=== PATIENT | female | born 1985 | race Caucasian/White ===

== ENCOUNTER 2017-04-29 08:00 | Emergency (ER) | payer MEDICAID ==
--- NOTE | 2017-04-29 08:39 | ED Physician Chart ---
Chief Complaint/HPI - Patient Information Date Seen:: 04/29/17 Time Seen:: 08:33 Chief Complaint:: abd p History of Present Illness:: pt sasy she was in [place] yest and had a ED workup after onset abd pain and cp...has no records w her. says no meds rxd except was given pepcid at time. pain worse today. pt recalls had pain and swelling at l leg last week but its better/gone now..she recalls her chest began soreness just after leg improved and still is sore. no sob. no cough. no hx pe/dvt. pt has had pain at rt upper abd and rad into rt flank. pos nausea. she has a hx of gerd and is on omeprazole otc and denies missed doses. no pmd and pt denies any rx x 2 > mo no constipation nor diarrhea. lmp regular. no vag dc. Allergies:: Allergies Allergy/AdvReac Type Severity Reaction Status Date / Time ibuprofen [From Motrin] Allergy Verified 04/29/17 08:08 metoclopramide [From Reglan] AdvReac Verified 04/29/17 08:08 Vitals:: Vital Signs - 8 hr 04/29/17 08:08 Temp 98.2 F HR 65 RR 16 BP 113/75 O2 Sat % 100 Historian:: Patient Review of Systems - Review of Systems General/Constitutional: No fever, No chills, No weight loss, No weakness, No diaphoresis, No edema, No loss of appetite Skin: No skin lesions, No rash, No bruising Head: No headache, No light-headedness Eyes: No loss of vision, No pain, No diplopia ENT: No earache, No nasal drainage, No sore throat, No tinnitus Neck: No neck pain, No swelling, No thyromegaly, No stiffness, No mass noted Cardio Vascular: Chest pain, No palpitations, No PND, No orthopnea, No edema Pulmonary: No SOB, No cough, No sputum, No wheezing GI: No nausea, No vomiting, No diarrhea, No pain, No melena, No hematochezia, No constipation, No hematemesis G/U: No dysuria, No frequency, No hematuria Musculoskeletal: No bone or joint pain, No back pain, No muscle pain Endocrine: No polyuria, No polydipsia Psychiatric: No prior psych history, No depression, No anxiety, No suicidal ideation Hematopoietic: No bruising, No lymphadenopathy Allergic/Immuno: No urticaria, No angioedema Neurological: No syncope, No focal symptoms, No weakness, No paresthesia, No headache, No seizure, No dizziness, No confusion, No vertigo Past Medical History - Past Medical History Past Medical History: PUD/GERD Surgical History: Appendectomy, Cholecystectomy Medication: Reviewed Family Medical History - Family Member Mother Living Status: Still Living Other Medical History: thyroid CA, heart prob. Physical Exam - Physical Examination General/Constitutional: Awake, Well-developed, well-nourished, Alert, No distress, GCS 15, Non-toxic appearing, Ambulatory Other Gen/Cons comments:: nontoxic. no colera type mvt. pt appears in nad. wn/wh.alert Head: Atraumatic Eyes: Lids, conjuctiva normal, PERRL, EOMI Skin: Nl inspection, No rash, No skin lesions, No ecchymosis, Well hydrated, No lymphadenopathy ENMT: External ears, nose nl, Nasal exam nl, Lips, teeth, gums nl Neck: Nontender, Full ROM w/o pain, No JVD, No nuchal rigidity, No bruit, No mass, No stridor Respiratory: Nl effort/Exclusion, Clear to Auscultation, No Wheeze/Rhonchi/Rales Other Respiratory comments:: ant chest soreness. no deformity. lungs clear Cardio Vascular: RRR, No murmur, gallop, rubs, NL S1 S2 GI: No organomegaly, No hernia, Normal BS's, Nondistended, No mass/bruits, No McBurney tenderness Other GI comments:: tndr ruq (vague), pos nabs. no masses. pt appears ok comfort. : No CVA tenderness Extremities: No tenderness or effusion, Full ROM, normal strength in all extremities, No edema, Normal digits & nails Neuro/Psych: Alert/oriented, DTR's symmetric, Normal sensory exam, Normal motor strength, Judgement/insight normal, Mood normal, Normal gait, No focal deficits Misc: normal gait, Normal back, No paraspinal tenderness Labs/Radiology/EKG Results - Lab Results Results: Laboratory Tests 04/29/17 04/29/17 04/29/17 08:15 08:15 08:15 WBC RBC Hgb Hct MCV MCH MCHC Differential RDW Plt Count MPV Neutrophils % Lymphocytes % Monocytes % Eosinophils % Basophils % D-Dimer Sodium Potassium Chloride Carbon Dioxide Anion Gap BUN Creatinine Est GFR ( Amer) Est GFR (Non-Af Amer) BUN/Creatinine Ratio Glucose Calcium Total Bilirubin AST ALT Alkaline Phosphatase Troponin I Total Protein Albumin Globulin Albumin/Globulin Ratio Urine Source CLEAN C Urine Color YELLOW Urine Clarity SL. CLOUDY Urine pH 5.5 Ur Specific [place] 1.025 Urine Protein NEGATIVE Urine Glucose (UA) NEGATIVE Urine Ketones NEGATIVE Urine Blood NEGATIVE Urine Nitrate NEGATIVE Urine Bilirubin NEGATIVE Urine Urobilinogen 0.2 Ur Leukocyte Esterase SMALL H Urine RBC 0-2 Urine WBC 6-10 H Ur Epithelial Cells FEW Urine Bacteria FEW Urine Test NEGATIVE POC Ur Test Urine Opiates Screen POSITIVE H Urine Methadone Screen NEGATIVE Ur Barbiturates Screen NEGATIVE Ur Tricyclics Screen POSITIVE H Ur Phencyclidine Scrn NEGATIVE Amphetamines Screen NEGATIVE U Methamphetamines Scrn NEGATIVE U Benzodiazepines Scrn POSITIVE H U Cocaine Metab Screen NEGATIVE U Cannabinoids Screen NEGATIVE 04/29/17 04/29/17 04/29/17 08:50 08:50 09:17 WBC RBC Hgb Hct MCV MCH MCHC Differential RDW Plt Count MPV Neutrophils % Lymphocytes % Monocytes % Eosinophils % Basophils % D-Dimer 154 Sodium 139 Potassium 3.4 L Chloride 107 Carbon Dioxide 24.9 Anion Gap 10.5 BUN 10 Creatinine 0.7 Est GFR ( Amer) > 60.0 Est GFR (Non-Af Amer) > 60.0 BUN/Creatinine Ratio 14.3 Glucose 98 Calcium 9.0 Total Bilirubin 0.3 AST 17 ALT 13 Alkaline Phosphatase 76 Troponin I 0.01 Total Protein 6.8 Albumin 3.8 Globulin 3.0 Albumin/Globulin Ratio 1.3 Urine Source Urine Color Urine Clarity Urine pH Ur Specific [place] Urine Protein Urine Glucose (UA) Urine Ketones Urine Blood Urine Nitrate Urine Bilirubin Urine Urobilinogen Ur Leukocyte Esterase Urine RBC Urine WBC Ur Epithelial Cells Urine Bacteria Urine Test POC Ur Test Negative Urine Opiates Screen Urine Methadone Screen Ur Barbiturates Screen Ur Tricyclics Screen Ur Phencyclidine Scrn Amphetamines Screen U Methamphetamines Scrn U Benzodiazepines Scrn U Cocaine Metab Screen U Cannabinoids Screen 04/29/17 10:09 WBC 7.8 RBC 4.17 Hgb 10.8 L Hct 33.2 L MCV 79.7 L MCH 26.0 L MCHC Differential 32.6 RDW 17.8 Plt Count 315 MPV 7.7 Neutrophils % 77.6 Lymphocytes % 16.7 L Monocytes % 4.5 Eosinophils % 0.5 Basophils % 0.7 D-Dimer Sodium Potassium Chloride Carbon Dioxide Anion Gap BUN Creatinine Est GFR ( Amer) Est GFR (Non-Af Amer) BUN/Creatinine Ratio Glucose Calcium Total Bilirubin AST ALT Alkaline Phosphatase Troponin I Total Protein Albumin Globulin Albumin/Globulin Ratio Urine Source Urine Color Urine Clarity Urine pH Ur Specific [place] Urine Protein Urine Glucose (UA) Urine Ketones Urine Blood Urine Nitrate Urine Bilirubin Urine Urobilinogen Ur Leukocyte Esterase Urine RBC Urine WBC Ur Epithelial Cells Urine Bacteria Urine Test POC Ur Test Urine Opiates Screen Urine Methadone Screen Ur Barbiturates Screen Ur Tricyclics Screen Ur Phencyclidine Scrn Amphetamines Screen U Methamphetamines Scrn U Benzodiazepines Scrn U Cocaine Metab Screen U Cannabinoids Screen - Radiology Results Results: us abd- no ks. nrml GB. no pathology. ED Septic Shock - . Is Septic Shock (SBP<90, OR Lactate>4 mmol\L) present?: No - <6hrs of presentation: Vital Signs: Vital Signs - 8 hr 04/29/17 08:08 Temp 98.2 F HR 65 RR 16 BP 113/75 O2 Sat % 100 Reassessment (Disposition) - Reassessment Reassessment:: explained to pt plan for [facility]. would not advise ct scan abd/p if it was just done ysterday since rad exposure risk signifigant and pos findings unikely given closeness of studies. (ie risk/benefit ratio poor). pt agrees. 10am- dw pt that staff has concerns. laborer vine[employer] recalls pt (and her scarred antecubital veins) from [facility] ED x last 3 days 3 visits there...pt was reportedly there all 3 days under the name of Ramila carranza same exact as today 89. Interestingly pt reports her dropped her off today and had to leave w her 3 kids...and she has a very nice purse w her but had NO identification for registrar today. ...other staff member independently says she remember s pt from prior visit in this ed under another name. additionally some elements of pt's hx seem unlikely to be given verbatim as though culled from medical text. concerns were dw pt that staff is concerned as am I and we have worry she might have a substance issue or other adgenda. Pt denies. expressed my concern and think she should have a pmd if freq ED visits are not elucidative. pt upset she is not to receive narcotic unless we find a clear indication. we have given zofran and a gi cocktail. Reassessment Condition:: Improved - Diagnosis Diagnosis:: 1 chest and abdominal pain of uncertain etiology (likely gerd related) 2 uti - Aftercare/Follow up Instructions Medication Prescribed:: pt to take her PPI as rxd and eat a good diet. no etoh. no spicy foods. add carafate prn (rx) and marcobid for uti. return if worse pain, fever, dehydration. may use regular meds for pain and/or see pain mgt dr. try carafate for gi discomfort pain ...may use maalox, tums, pepto bismol also... take macrobid for uti. plenty fluids. return if worse. pt apparently eloped from ED after we talked earlier...I was not alerted she had left...she did not wait or ask for final review of her results before eloping.. - Patient Disposition Discharge/Transfer:: Home Condition at Disposition:: Improved
[2017-04-29] MEDS ORDERED: Donnatal Liq 5 ML UDC PO ONE (08:41)
[2017-04-29] MEDS ORDERED: Maalox 30 mL Cup PO ONE (08:41)
[2017-04-29] MEDS ORDERED: Donnatal Liq 5 ML UDC ONE ×2 (08:45→08:54)
[2017-04-29] MEDS ORDERED: Maalox 30 mL Cup ONE (08:46)
[2017-04-29 09:16] LABS: ALB/GLOB RATIO 1.3 (1.0-1.8); ALKALINE PHOSPHATASE 76 U/L (34-104); ANION GAP 10.5 (7.0-16.0); BILIRUBIN,TOTAL 0.3 mg/dL (0.3-1.0); BUN - UREA NITROGEN 10 mg/dL (7-25); BUN/CREATININE RATIO 14.3; CARBON DIOXIDE 24.9 mEq/L (21.0-31.0); CHLORIDE 107 mEq/L (98-107); CREATININE - SERUM 0.7 mg/dL (0.6-1.2); GLUCOSE 98 mg/dL (70-105); POTASSIUM SERUM 3.4 mEq/L (3.5-5.1); SGOT 17 U/L (13-39); SGPT/ALT 13 U/L (7-52); SODIUM SERUM 139 mEq/L (136-145)
[2017-04-29 10:03] LABS: URINE BILIRUBIN NEGATIVE (NEGATIVE); URINE BLOOD NEGATIVE (NEGATIVE); URINE COLOR YELLOW; URINE GLUCOSE (UA) NEGATIVE (NEGATIVE); URINE KETONE NEGATIVE (NEGATIVE); URINE PH 5.5; URINE PROTEIN NEGATIVE (NEGATIVE); URINE UROBILINOGEN 0.2 E.U./dL (0.2 - 1.0)
[2017-04-29 10:09] LABS: URINE BACTERIA FEW /hpf (NONE SEEN); URINE EPITHELIAL CELLS FEW /lpf (FEW); URINE RBC 0-2 /hpf (0-5)
[2017-04-29 10:15] LABS: % BASOPHILS 0.7 % (0.0-2.0); % EOSINOPHILS 0.5 % (0.0-5.0); % LYMPHOCYTES 16.7 % (20.0-50.0); % MONOCYTES 4.5 % (2.0-10.0); % NEUTROPHILS 77.6 % (40.0-80.0); HEMATOCRIT 33.2 % (35.0-45.0); HEMOGLOBIN 10.8 gm/dL (11.7-15.5); MEAN CELL VOLUME 79.7 fl (81-100); MEAN CORPUSCULAR HGB CONC 32.6 pg (28.0-36.0); MEAN PLATELET VOLUME 7.7 fl; PLATELET COUNT 315 Th/cmm (150-400); RED BLOOD COUNT 4.17 Mil/cmm (3.80-5.10); RED CELL DISTRIBUTION WIDTH 17.8 % (11.5-20.0); WHITE BLOOD COUNT 7.8 Th/cmm (4.8-10.8)
[2017-04-29 10:22] LABS: AMPHETAMINE URINE NEGATIVE (NEGATIVE); BARBITURATES URINE NEGATIVE (NEGATIVE)
[2017-04-29 10:23] LABS: METHADONE URINE NEGATIVE (NEGATIVE)
--- NOTE | 2017-04-29 11:00 | Diagnostic Imaging Report ---
Portable chest x-ray History: Pain Allowing for portable technique the heart size is normal. No focal pulmonary parenchymal processes. No hilar or mediastinal abnormalities. Impression: No acute abnormalities.
--- NOTE | 2017-04-29 11:13 | Diagnostic Imaging Report ---
Abdominal ultrasound HISTORY: Pain The liver appears enlarged. No focal lesions. The gallbladder is not seen consistent with the patient's surgical history. No biliary dilatation. The pancreas cannot be seen due to bowel gas. Kidneys appear normal bilaterally. No other retroperitoneal or intra-abdominal abnormalities. IMPRESSION: 1. Hepatomegaly 2. Nonvisualization of the gallbladder consistent with the patient's surgical history.
== END 2017-04-29 10:27 ==
LOC: ER 08:00
DX: N39.0 Urinary tract infection, site not specified (principal); R10.11 Right upper quadrant pain; R07.9 Chest pain, unspecified; K21.9 Gastro-esophageal reflux disease without esophagitis; Z90.49 Acquired absence of other specified parts of digestive tract; Z88.6 Allergy status to analgesic agent; Z88.8 Allergy status to other drugs, medicaments and biological substances
CPT/HCPCS: 99285; 96374; 93005; 71010; 76700; 84484; 36415; 85379; 80307; 85025; 81001; 81025 ×2; 80053; J2405